=== PATIENT | male | born 1965 | race African-American/Black ===

== ENCOUNTER 2017-07-24 08:19 | Day surgery (SDC) | payer OTHER ==
[~2017-07-24] VITALS: Ht 175.3 cm; Wt 98.4 kg
[2017-07-24] VITALS (16 sets, daily range): BP systolic 124–170; BP diastolic 83–106
[2017-07-24] MEDS ORDERED: ATORVASTATIN CA10 MG ORAL (09:03)
[2017-07-24] MEDS ORDERED: Bupivacaine 0.25% Inj 30ml INJ ONE (09:08)
[2017-07-24] MEDS ORDERED: Lidocaine 1% 10mg/ml/Epi 0.005mg/ml 30ml vial INJ ONE (09:08)
[2017-07-24] MEDS ORDERED: Bacitracin 50000 Units Vial ONE (09:09)
[2017-07-24] MEDS ORDERED: NeoSporin Gu Irrig 1ml Amp IRRIG ONE (09:09)
[2017-07-24] MEDS ORDERED: Ropivacaine 5mg/ml Vial 30ml INJ ONE (09:09)
[2017-07-24] MEDS ORDERED: Sodium Bicarbonate 8.4% 50ml Inj ONE (09:44)
[2017-07-24] MEDS ORDERED: Sodium Bicarbonate 50ml Carp ONE (09:45)
--- NOTE | 2017-07-24 09:56 | Pre-Procedure Note/Attestation ---
Pre-Procedure Note/Attestation Complete Prior to Procedure Planned Procedure: left Procedure Narrative: left ankle ORIF Indications for Procedure Pre-Operative Diagnosis: Left ankle fracture Attestation I attest that I discussed the nature of the procedure; its benefits; risks and complications; and alternatives (and the risks and benefits of such alternatives ), prior to the procedure, with the patient (or the patient's legal sales representative electric service). I attest that, if there was a reasonable possibility of needing a blood transfusion, the patient (or the patient's legal sales representative electric service) was given the [facility] standardized written summary, pursuant to the [place] Blood Safety Act ([place] Health and Safety Code # 1645, as amended). I attest that I re-evaluated the patient just prior to the surgery and that there has been no change in the patient's H&P, except as documented below: KORI BROWN Jul 24, 2017 09:56
[2017-07-24] MEDS ORDERED: Midazolam 2mg/2ml Inj ONE (10:00)
[2017-07-24] MEDS ORDERED: LR 1000ml ONE (10:00)
[2017-07-24] MEDS ORDERED: fentaNYL 100 mcg/2 mL IV ONE (10:00)
[2017-07-24] MEDS ORDERED: NS Irrig 1000ml ONE (10:00)
[2017-07-24] MEDS ORDERED: Propofol 200mg/20ml IV ONE (10:00)
[2017-07-24] MEDS ORDERED: Sterile Water Irrig 1000ml IRRIG ONE (10:00)
[2017-07-24] MEDS ORDERED: LR 1000ml 1,000 ML IVLG SCH (10:42)
[2017-07-24] MEDS ORDERED: LR 1000ml 1,000 ML IV SCH (10:45)
--- NOTE | 2017-07-24 10:46 | Anethesia Preoperative Eval ---
Anesthesia Pre-op PMH/ROS General Date of Evaluation: Jul 24, 2017 Time of Evaluation: 10:00 Anesthesiologist: Kobe ASA Score: ASA 1 Mallampati Score Class I : Soft palate, uvula, fauces, pillars visible Class II: Soft palate, uvula, fauces visible Class III: Soft palate, base of uvula visible Class IV: Only hard plate visible Mallampati Classification: Class II Surgeon: Franco Diagnosis: Left ankle fracture Surgical Procedure: ORIF Allergies: Coded Allergies: No Known Allergies (Unverified , 07/24/17) Medications: see eMAR Past Medical History Cardiovascular: Denies: HTN, CAD, [place], valve dz, arrhythmia, other Pulmonary: Denies: asthma, COPD, ORACIO, other Gastrointestinal/Genitourinary: Denies: GERD, CRI, ESRD, other Neurologic/Psychiatric: Denies: dementia, CVA, depression/anxiety, TIA, other Endocrine: Denies: DM, hypothyroidism, steroids, other HEENT: Denies: cataract (L), cataract (R), glaucoma, [place] (L), [place] (R), other Hematology/Immune: Denies: anemia, DVT, bleeding disorder, other Musculoskeletal/Integumentary: Denies: OA, RA, DJD, DDD, edema, other PMH Narrative: Denies significant PMH PSxH Narrative: No prior surgery Anesthesia Pre-op Phys. Exam Physician Exam Last Vital Signs Date Time Temp Pulse Resp B/P (MAP) Pulse Ox O2 Delivery O2 Flow Rate FiO2 07/24/17 09:03 98.2 79 18 134/86 96 Room Air 98.2 Constitutional: NAD Neurologic: CN 2-12 intact Cardiovascular: RRR, no M/R/G Respiratory: CTA Gastrointestinal: S/NT/ND Airway Exam Mallampati Score: Class II MO: full ROM: full Teeth: intact Anesthesia Pre-op A/P Labs WNL Studies Pre-op Studies: EKG - NSR Risk Assessment & Plan Assessment: Healthy male for ORIF left ankle Plan: GA, LMA, sciatic nerve block at the popliteal fossa for post op pain. Status Change Before Surgery: No Pre-Antibiotics Drug: Ancef Given Within 1 Hr of Incision: Yes Time Given: 10:15 MARTY THOMPSON M.D. Jul 24, 2017 10:46
--- NOTE | 2017-07-24 10:47 | Immediate Post-Op Evaluation ---
Immediate Post-Op Evalulation Immediate Post-Op Evalulation Procedure: ORIF left ankle Date of Evaluation: Jul 24, 2017 Time of Evaluation: 12:00 IV Fluids: 900 Blood Pressure Systolic: 146 Blood Pressure Diastolic: 106 Pulse Rate: 85 Respiratory Rate: 20 O2 Sat by Pulse Oximetry: 99 Temperature (Fahrenheit): 98.3 Pain Score (1-10): 6 Nausea: No Vomiting: No Complications No complication Patient Status: awake, patent, none Hydration Status: adequate Drug: Ancef Given Within 1 Hr of Incision: Yes Time Given: 10:15 MARTY THOMPSON M.D. Jul 24, 2017 10:47
[2017-07-24] MEDS ORDERED: Meperidine 50mg/ml Inj(FOR RIGORS ONLY) IVP ONE (11:00)
--- NOTE | 2017-07-24 11:29 | Diagnostic Imaging Report ---
Indication: Left ankle fracture Comparison: None Findings: 2 views of the left ankle performed demonstrating a lateral compression plate and several screws. There is also posterior malleolus fracture noted. Soft tissue swelling is present. Ankle alignment is normal. IMPRESSION: Left lateral malleolar fracture reduced by plate and screws. Posterior malleolus fracture also noted.
--- NOTE | 2017-07-24 11:48 | Brief Operative Note ---
Immediate Post Operative Note Operative Note Pre-op Diagnosis: Left ankle fracture Procedure: Left ankle ORIF Post-op Diagnosis: same as pre-op Findings: consistent w/pre-op dx studies Surgeon: Franco Anesthesiologist: Terrence Anesthesia: general, local Specimen: none Complications: none Condition: stable Fluids: 100 ml Estimated Blood Loss: minimal Drains: none Implant(s) used?: Yes KORI BROWN Jul 24, 2017 11:48
[2017-07-24] MEDS: Hydromorphone 0.5mg/0.5ml inj IVP PRN ×2 (12:27→12:45)
--- NOTE | 2017-07-24 13:12 | 48 Hour Post Anesthesia Eval ---
Post Anesthesia Evaluation Procedure: ORIF left ankle Date of Evaluation: Jul 24, 2017 Time of Evaluation: 13:10 Blood Pressure Systolic: 165 0: 82 Pulse Rate: 78 Respiratory Rate: 15 O2 Sat by Pulse Oximetry: 100 Airway: patent Nausea: No Vomiting: No Pain Intensity: 3 Hydration Status: adequate Cardiopulmonary Status: Stable Mental Status/LOC: patient returned to baseline Follow-up Care/Observations: As per surgery Post-Anesthesia Complications: No anesthetic complication Follow-up care needed: N/A AMRTY THOMPSON M.D. Jul 24, 2017 13:12
--- NOTE | 2017-07-24 15:14 | Diagnostic Imaging Report ---
Indication: Left ankle surgery. Left ankle fracture Comparison: None Findings: Intraoperative imaging showing 5 fluoroscopic obtained images of the left ankle during open reduction and internal fixation of a left lateral malleolus fracture. Lateral compression plate and screws placed. Posterior malleolus fracture also noted. Total fluoroscopic time 26 seconds. IMPRESSION: Intraoperative imaging
--- NOTE | 2017-07-24 17:30 | Operative Note - Dictated ---
DATE OF OPERATION: 07/24/2017 SURGEON: Robel Gamez M.D. FIELD TRAINING MANAGER: None. ANESTHESIA: Regional plus general plus local. COMPLICATIONS: None. ANTIBIOTICS: Ancef. PREOPERATIVE DIAGNOSIS: Left distal fibular fracture with mortise disruption. POSTOPERATIVE DIAGNOSIS: Left distal fibular fracture with mortise disruption. PROCEDURES PERFORMED: 1. Left distal fibular open reduction and internal fixation using a 4-hole distal fibular plate by I-MD with both locking and nonlocking screws. 2. Left short leg casting with bivalving. TOURNIQUET TIME: None. BACKGROUND: The patient sustained a left ankle fracture with mortise disruption. All risks, benefits, and alternatives to surgical intervention were discussed in great detail. Risks included, but were not limited to, bleeding, infection, neurovascular injury, need for additional surgical intervention, failure of pain relief, arthrofibrosis, complications of anesthesia, blood clots, stroke, heart attack, and potentially . He understood these risks, amongst others, including malunion, nonunion, rotational deformity, and ankle arthritis as well as instability, and consent was signed. PROCEDURE IN DETAIL: The patient was brought into the operating room, placed supine on the operating table. The left lower extremity was correctly verified for surgical site, and prepped and draped in standard sterile fashion. Fluoroscopic imaging confirmed the ability to reduce the fracture and realign the mortise. An incision was created centered over the fracture on the fibula. Care was taken not to lift any tissue flaps. The fracture was identified and hematoma removed. It was reduced and then appropriately length plate was secured into position with both locking and nonlocking screws. Fluoroscopic imaging confirmed appropriate fracture reduction, hardware placement, and mortise reduction. Plain radiographs confirmed the same. Copious irrigation was used in the lateral wound and finger sweep, revealed no retained foreign body or debris. 10 mL of plain Marcaine was injected into the surrounding tissues. The deeper tissues were reapproximated using 0 Vicryl and more superficial with 2-0 Vicryl and nylon for skin. Dry sterile dressing was applied. A short-leg fiberglass cast was fashioned and bivalved. He tolerated the procedures well. There were no complications. I attest that I performed the entire operation. He was transferred to recovery in good condition. Robel Gamez M.D. DR: FORTINO JOB#: [id number] CC:
[2017-07-24] MEDS ORDERED: D5 1/2NS 1,000 ML IV SCH (18:01)
[2017-07-24] MEDS ORDERED: Norco 5mg/325mg tab ORAL PRN (18:01)
[2017-07-24] MEDS ORDERED: Tylenol #3 tab (300mg/30mg) ORAL PRN (18:01)
== END 2017-07-24 15:00 | disposition home or self-care (01) ==
LOC: SUR 08:19
DX: S82.62XA Displaced fracture of lateral malleolus of left fibula, initial encounter for closed fracture (principal); E78.5 Hyperlipidemia, unspecified; Z82.49 Family history of ischemic heart disease and other diseases of the circulatory system; Z80.3 Family history of malignant neoplasm of breast; Z82.61 Family history of arthritis; X58.XXXA Exposure to other specified factors, initial encounter; Y93.9 Activity, unspecified; Y92.9 Unspecified place or not applicable
CPT/HCPCS: 27792; 73600; 76000; C1713; J0690; J1170; J2175; J2250; J2405; J2704; J2795; J3010; J3490; J7120; 94003; 94150